=== PATIENT | female | born 1950 | race Caucasian/White ===

== ENCOUNTER 2022-01-22 14:15 | Outpatient (CLI) | payer MEDICARE, BC, SELFPAY ==
[2022-01-22 21:40] LABS: Albumin* 4.3 g/dL (3.3-5.0); Chloride* 106 mmol/L (96-114); Sodium* 138 mmol/L (135-149)
[2022-01-22 21:41] LABS: Potassium* 4.6 mmol/L (3.6-5.1)
[2022-01-22 21:42] LABS: Creatinine* 0.9 mg/dL (0.5-1.5)
[2022-01-22 21:43] LABS: Alanine Aminotransferase* 23 U/L (4-35); Alkaline Phosphatase* 111 U/L (40-150); Aspartate Amino Transferase* 27 U/L (12-35); Bilirubin Total* 0.4 mg/dL (0.1-1.5); Blood Urea Nitrogen* 14 mg/dL (7-30); Carbon Dioxide* 24 mmol/L (20-32); Glucose* 87 mg/dL (60-115); Total Protein* 7.2 g/dL (6.0-8.3)
[2022-01-22 21:44] LABS: Calcium* 9.4 mg/dL (8.4-10.6)
[2022-01-22 21:46] LABS: C Reactive Protein* 1.6 mg/dL (0.5-1.0)
[2022-01-22 21:59] LABS: Free T4 Free Thyroxine* 1.62 ng/dL (0.70-1.85)
== END 2022-01-22 14:16 | disposition home or self-care (01) ==
PROVIDERS: PCP Family Medicine; Visit Provider Family Medicine
DX: K52.9 Noninfective gastroenteritis and colitis, unspecified (principal); E78.5 Hyperlipidemia, unspecified
CPT/HCPCS: 80053; 84439; 84443; 86140

== ENCOUNTER 2022-02-19 07:54 | Outpatient (CLI) | payer MEDICARE, BC, SELFPAY | END 2022-02-19 07:55 | disposition home or self-care (01) | LOC: OP CLINIC 07:55 | PROVIDERS: PCP Family Medicine; Visit Provider Surgery | DX: R19.7 Diarrhea, unspecified (principal); K63.5 Polyp of colon | CPT/HCPCS: 45380; 88305; 99153; J2250; J3010 ==

== ENCOUNTER 2023-05-22 10:09 | Outpatient (CLI) | payer MEDICARE, BC, SELFPAY | END 2023-05-22 10:10 | disposition home or self-care (01) | PROVIDERS: PCP Family Medicine; Visit Provider Family Medicine | DX: E55.9 Vitamin D deficiency, unspecified (principal); E03.9 Hypothyroidism, unspecified; E78.5 Hyperlipidemia, unspecified | CPT/HCPCS: 80053; 80061; 82306; 82607; 84443 ==

== ENCOUNTER 2023-06-04 14:49 | Outpatient (CLI) | payer MEDICARE, BC, SELFPAY ==
--- NOTE | 2023-06-04 15:00 | CRLHL7_ITS ---
For Patients: As a result of the Cures Act, medical imaging exams and procedure reports are released immediately into your electronic medical record. You may view this report before your referring provider. If you have questions, please contact your health care provider. Indication: Cutaneous abscess of limb Technique: Grayscale and color Doppler ultrasound of the left axilla performed. Comparison: None Findings: There is a circumscribed mostly anechoic solid nodule located just beneath the skin measuring 1.3 x 0.7 x 1.0 cm. Mild distal acoustic enhancement noted. No internal vascularity. Impression: Solid nodule located just beneath the skin in the left axilla measuring 1.3 cm. No drainable fluid collection. Surgical consultation recommended. Dictated by Gaurav Johnson MD @ 06/06/2023 10:58:58 AM (Electronically Signed)
--- NOTE | 2023-06-04 16:00 | CRLHL7_ITS ---
For Patients: As a result of the Cures Act, medical imaging exams and procedure reports are released immediately into your electronic medical record. You may view this report before your referring provider. If you have questions, please contact your health care provider. Indication: Neoplasm of unspecified behavior of bone Technique: Grayscale and color Doppler ultrasound of the right medial clavicular soft tissues performed. Comparison: None Findings: No sonographic abnormality. No fluid collection or abscess. No adenopathy. No abnormal vascularity. Impression: Negative sonogram. Dictated by Gaurav Johnson MD @ 06/06/2023 11:00:20 AM (Electronically Signed)
== END 2023-06-04 14:50 | disposition home or self-care (01) ==
LOC: US 14:49
PROVIDERS: PCP Family Medicine; Visit Provider Family Medicine
DX: D49.2 Neoplasm of unspecified behavior of bone, soft tissue, and skin (principal); L02.419 Cutaneous abscess of limb, unspecified; L02.414 Cutaneous abscess of left upper limb
CPT/HCPCS: 76536; 76882

== ENCOUNTER 2023-07-10 14:32 | Outpatient (CLI) | payer MEDICARE, BC, SELFPAY ==
--- NOTE | 2023-07-10 15:00 | CRLHL7_ITS ---
For Patients: As a result of the Century Cures Act, medical imaging exams and procedure reports are released immediately into your electronic medical record. You may view this report before your referring provider. If you have questions, please contact your health care provider. INDICATION: LYMPHADENOPATHY, LOCALIZED SWELLING COMPARISON: Ultrasound 06/04/2023 TECHNIQUE: A CT volumetric acquisition was performed of the neck during intravenous infusion of 61 cc Isovue 370 nonionic intravenous contrast. Please note that all CT scans at this facility use dose modulation, iterative reconstruction, and/or weight-based dosing when appropriate to reduce radiation dose to as low as reasonably achievable. FINDINGS: The CT images demonstrate normal aeration of the mastoid air cells and middle ear cavities. The paranasal sinuses are clear. Mild curvature of the nasal septum. The parotid and submandibular glands are of normal size and have uniform enhancement. The oropharynx appears normal. The valleculae, epiglottis, aryepiglottic folds and piriform sinuses appear normal. There is a normal appearance of the larynx and subglottic trachea. The thyroid gland is of normal size and has uniform density. Atherosclerotic changes are present. Lung apices are clear. Prominent right parotid space lymph node on the right measuring 1.4 cm, level 8. Subcentimeter left level 8 lymph nodes also present. Anterior hypertrophic spurring at the medial right clavicle. Degenerative disc disease C4-5, C5-6 and C6-7. IMPRESSION: Mildly prominent right level 8 lymph node with possible developing central necrosis. ENT referral recommended. Anterior hypertrophic spur formation at the medial right clavicle accounting for the clinical lump. Please note that all CT scans at this facility use dose modulation, iterative reconstruction, and/or weight-based dosing when appropriate to reduce radiation dose to as low as reasonably achievable. Dictated by Gaurav Johnson MD @ 07/11/2023 11:41:49 AM (Electronically Signed)
[2023-07-10 15:34] LABS: Creatinine* 0.7 mg/dL (0.5-1.5); Estimated Glomerular Filt Rate 93 ml/min
== END 2023-07-10 14:33 | disposition home or self-care (01) ==
LOC: CT 14:33
PROVIDERS: PCP Family Medicine; Visit Provider Family Medicine
DX: R22.9 Localized swelling, mass and lump, unspecified (principal); R59.0 Localized enlarged lymph nodes
CPT/HCPCS: 36415; 70491; 82565; Q9967

== ENCOUNTER 2023-08-19 11:02 | Outpatient (CLI) | payer MEDICARE, BC, SELFPAY ==
--- NOTE | 2023-08-19 11:15 | CRLHL7_ITS ---
For Patients: As a result of the Century Cures Act, medical imaging exams and procedure reports are released immediately into your electronic medical record. You may view this report before your referring provider. If you have questions, please contact your health care provider. ULTRASOUND-GUIDED RIGHT PAROTID GLAND BIOPSY CLINICAL HISTORY: Indeterminate nodular mass associated with the right parotid gland. COMPARISON STUDIES: 07/10/2023 TECHNIQUE: Real-time ultrasound with image documentation was used for targeting the right parotid gland lesion. Core biopsy specimens were obtained using an automated gun with a 18-gauge biopsy needle. CONSENT and TIME OUT: The procedure, risks, and alternatives were explained to the patient and a consent was signed. [place] Protocol was followed including pre-procedure verification that relevant information/documentation was available, reviewed and properly matched to the patient; consent accurate and complete; and equipment and supplies available. Time Out was conducted just prior to starting procedure to verify the four required elements: patient identity, correct side/site marked (if applicable), procedure, relevant images/results properly labeled and displayed (if applicable). PROCEDURE: The patient was positioned supine on the ultrasound table. The right cheek was prepped with ChloraPrep. 5 cc of 1 percent lidocaine used for local anesthesia. Core samples were obtained. The specimens were placed in 10% formalin and sent to the pathology department. Pressure was held on the biopsy site until all bleeding subsided. The skin incision was closed with Steri-Strips. LATERALITY: Right parotid gland LESION: Hypoechoic solid and cystic nodule measuring 2.7 x 1.4 cm SUSPICION FOR MALIGNANCY: Medium NUMBER OF SAMPLES: 5 IMPRESSION: Ultrasound-guided core needle biopsy of right parotid gland lesion. Dictated by Gaurav Johnson MD @ 08/19/2023 1:00:29 PM (Electronically Signed)
== END 2023-08-19 11:03 | disposition home or self-care (01) ==
LOC: US 11:05
PROVIDERS: PCP Family Medicine; Visit Provider Otolaryngology
DX: R22.1 Localized swelling, mass and lump, neck (principal); K11.6 Mucocele of salivary gland
CPT/HCPCS: 20206; 76942; 88305; A4649

== ENCOUNTER 2023-09-09 07:42 | Outpatient (CLI) | payer MEDICARE, BC, SELFPAY | END 2023-09-09 07:43 | disposition home or self-care (01) | LOC: FRMREF 07:44 | PROVIDERS: PCP Family Medicine; Visit Provider Physician Assistant Medical | DX: M54.9 Dorsalgia, unspecified (principal); R63.4 Abnormal weight loss | CPT/HCPCS: 80053; 87086 ==

== ENCOUNTER 2023-09-11 10:34 | Outpatient (CLI) | payer MEDICARE, BC, SELFPAY | END 2023-09-11 10:35 | disposition home or self-care (01) | PROVIDERS: PCP Family Medicine; Visit Provider Family Medicine | DX: E03.9 Hypothyroidism, unspecified (principal); E55.9 Vitamin D deficiency, unspecified | CPT/HCPCS: 82306; 84439; 84443; 86140 ==

== ENCOUNTER 2023-09-17 10:29 | Outpatient (CLI) | payer MEDICARE, BC, SELFPAY ==
--- NOTE | 2023-09-17 11:00 | CT_ITS ---
Patient: NIKOLAY HUBBARD Facility:?[facility] Patient ID:?[id number] Site Patient ID:?[id number]. Site :?1950 Study:?CT-Chest/Abd/Pelvis 57CC ISOVUE 370 AND WATER PREP-09/17/2023 11:19:34 AM Ordering Physician:?DR. 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 PT HAS PAIN RIGHT BACK THAT RADIATES TO THE FRONT Technique: CT Chest/Abd/Pelvis 57CC ISOVUE 370 AND WATER PREP Please note that all CT scans at this facility use dose modulation, iterative reconstruction, and/or weight-based dosing when appropriate to reduce radiation dose to as low as reasonably achievable. Comparison: None Findings: In the chest, atherosclerotic changes are present. No adenopathy. No mass in the thoracic inlet. Degenerative disc disease. No suspicious osseous lesion or fracture. Roseann fissural nodule on the right measuring 4.3 millimeters, 3/48 nodular density within the left lower lobe measuring 8.6 millimeters, 3/51. Lingular nodule measuring 2 millimeters, 3/59. Left upper lobe nodule measuring 3 millimeters, 3/33. no infiltrate or edema. No effusion or pneumothorax. Mild paraseptal emphysema in the right lung apex. In the abdomen, focal fat deposition is present within the liver adjacent to the falciform ligament. No suspicious intrahepatic mass. The gallbladder is within normal limits. No calcified gallstones or biliary obstruction. Normal pancreas and spleen. Adrenal glands are unremarkable. Normal kidneys. Normal ureters. Atherosclerotic changes. No retroperitoneal or mesenteric adenopathy. In the pelvis, there are curvilinear areas of sclerosis within both femoral heads. No subchondral collapse. Joint space narrowing and spurring at both hip joints. Multilevel discogenic spurring. No fracture. The bladder is unremarkable. No pelvic mass. No bowel obstruction or free air. No free fluid. No enlarged lymph nodes. Mild narrowing of the sigmoid colon is present extending over a length of 15 millimeters, probably related to peristalsis. Impression: Small bilateral pulmonary nodules. The largest measures 8.6 millimeters in the lower lobe on the left. Follow-up in 1 year recommended. No adenopathy in the chest, abdomen or pelvis. Short segment segmental narrowing of the sigmoid colon, probable peristalsis. However, correlate with recent colonoscopy. Please note that all CT scans at this facility use dose modulation, iterative reconstruction, and/or weight-based dosing when appropriate to reduce radiation dose to as low as reasonably achievable. Dictated by Gaurav Johnson MD @ 09/17/2023 12:46:17 PM Signed by:?Gaurav Johnson MD @09/17/2023 12:46:17 PM (Electronic Signature)
== END 2023-09-17 10:30 | disposition home or self-care (01) ==
LOC: CT 10:30
PROVIDERS: PCP Family Medicine; Visit Provider Family Medicine
DX: M54.9 Dorsalgia, unspecified (principal); R91.8 Other nonspecific abnormal finding of lung field
CPT/HCPCS: 71260; 74177; Q9967

== ENCOUNTER 2023-09-25 08:34 | Outpatient (CLI) | payer MEDICARE, BC, SELFPAY ==
--- NOTE | 2023-09-25 09:00 | PE_ITS ---
[facility] [address] [address] Phone:?[phone] Fax:?[phone] Referring Physician Information: Natalie Mcdonald M.D. [address] [facility] [address] Phone:?[phone] Fax:?[phone] Patient:?Raheem Mike D.O.B:?1950 Sex:?Female Phone:?[phone] [facility] MRN:?[id number] Exam Date:?09/25/2023 EXAM:?PET/CT EYES TO THIGHS, CANCER RESTAGING CLINICAL INFORMATION: Lung nodules, weight loss, known parotid tumor (benign). TECHNICAL INFORMATION: Helical acquisition of data was obtained from the orbits to the upper thighs with reconstruction of 3.75 mm thick images at 3.[address] data was used for attenuation correction. PET scanning was performed through the same anatomic range 60 minutes following administration of 11.56 mCi of 18-FDG delivered intravenously. The patient's glucose at the time of the injection was 78 mg/dL. PET, CT and PET/CT fusion images are interpreted using a computer viewing workstation. PET, CT and PET/CT fusion images were archived and saved in the patient's permanent medical record. COMPARISON: CT chest, abdomen and pelvis 09/17/2023 INTERPRETATION: Head and Neck: FDG avid lesions in the bilateral parotid gland with 2 on the right and one on the left. A commercial sales representative lesion on the right measures 1.1 x 1.1 cm (series 202 image 37) with an SUV max of 14.96. Focal nodular prominence in the right epiglottic region measuring 1.0 cm (series 2 image 47) with mild FDG avidity with an SUV max of 6.81. There is physiologic uptake in the intracranial soft tissues. Chest: Mediastinal blood pool average SUV of 3.34. Nodular opacity in the left lower lobe measures approximately 1.0 cm (series 202 image 113) and demonstrates mild FDG avidity with an SUV max of 8.77. No other lung nodules are visualized on this exam. No lymphadenopathy detected. Abdomen and Pelvis: There are no abnormal hypermetabolic foci within the abdomen or pelvis. There is physiologic excretion of radiotracer in the urine and bowel. Skeleton, Musculature, and Integument: No abnormal hypermetabolic foci within the skeleton. No reta osteoblastic or osteolytic disease. CONCLUSION: * A mildly FDG avid 1 cm nodular opacity in the left lower lobe. This remains nonspecific and may be infectious or inflammatory in nature, with neoplasm not excluded. Recommend short interval follow-up CT chest in 3 months. * No FDG avid lymphadenopathy in the neck, chest, abdomen or pelvis. * FDG avid bilateral parotid lesions which are likely compatible with provided history of known Warthin's tumors. * Slight focal nodular asymmetry along the right aspect of the epiglottis with mild FDG avidity. Correlate with prior imaging if available. Otherwise, consider ENT consult/direct visualization or CT of the neck with contrast. Electronically signed on 09/29/2023 1:18:00 PM by Luis Chowdhury D.O
== END 2023-09-25 08:35 | disposition home or self-care (01) ==
LOC: RAD 08:35
PROVIDERS: PCP Family Medicine; Visit Provider Family Medicine
DX: R91.8 Other nonspecific abnormal finding of lung field (principal); R63.4 Abnormal weight loss; D11.9 Benign neoplasm of major salivary gland, unspecified; M54.6 Pain in thoracic spine
CPT/HCPCS: 78815; A9552

== ENCOUNTER 2023-11-27 10:48 | Outpatient (CLI) | payer MEDICARE, BC, SELFPAY | END 2023-11-27 10:49 | disposition home or self-care (01) | LOC: FRMREF 10:49 | PROVIDERS: PCP Family Medicine; Visit Provider Family Medicine | DX: E03.9 Hypothyroidism, unspecified (principal) | CPT/HCPCS: 84439; 84443 ==

== ENCOUNTER 2024-06-04 08:55 | Outpatient (CLI) | payer MEDICARE, BC, SELFPAY | END 2024-06-04 08:56 | disposition home or self-care (01) | LOC: NFLDREF 06-06 14:05 | PROVIDERS: PCP Family Medicine; Referring Provider Family Medicine; Visit Provider Family Medicine | DX: R63.4 Abnormal weight loss (principal); E78.5 Hyperlipidemia, unspecified; E55.9 Vitamin D deficiency, unspecified; Z11.59 Encounter for screening for other viral diseases | CPT/HCPCS: 80053; 80061; 82306; 86803 ==

== ENCOUNTER 2024-06-08 10:27 | Outpatient (CLI) | payer MEDICARE, BC, SELFPAY | END 2024-06-08 10:28 | disposition home or self-care (01) | PROVIDERS: PCP Family Medicine; Visit Provider Family Medicine | DX: E78.5 Hyperlipidemia, unspecified (principal); E03.9 Hypothyroidism, unspecified; E55.9 Vitamin D deficiency, unspecified; R63.4 Abnormal weight loss | CPT/HCPCS: 82607; 84443 ==

== ENCOUNTER 2024-06-15 12:48 | Outpatient (RCR) | payer MEDICARE, BC, SELFPAY ==
--- NOTE | 2024-06-15 15:06 | PT.OPE ---
[facility] PT [facility] Out[facility] Eval Start: 06/15/24 12:50 Freq: Status: Active Protocol: Document 06/15/24 15:05 CJT (Rec: 06/15/24 15:06 CJT [id number]) E-signed By Alex Barnhart PT Physical Therapy Outpatient Evaluation Insurance Information Recert Due Date 09/13/24 Insurance Name Medicare B Medical Diagnosis Unsteadiness Sacroilitis Lesion popliteal nerve Treating Diagnosis Unsteady gait Repeated falls Generalized weakness Referring Natalie Trevizo Subjective Preferred Name Edwardo Álvarez Pt presents for evaluation of unsteadiness on feet. Pt reports that she has had neuropathy in B feet constantly for the past 5-6 months although this originally began after pt had chemotherapy in 2016. Pt also developed drop foot on L following her chemotherapy treatment. Pt reports that in 2016 she had a disease that was attacking her nervous system. Various treatments were tried but nothing was working so chemotherapy was attempted and this seemed to help. PMH includes Graves disease. Pt also notes that she had some spots show up in her lunges. When she went in to have a biopsy the spots could not be located. Pt reports 2 falls in her home in the past year. Both of these occurred when she caught her toe on the carpet in her home. No reported injuries. Pt notes her legs and feet start to hurt when she walks. This changes day to day. Sometimes her feet hurt immediately and she cannot walk, other times she is only able to walk about 50 yards. The longer she stands and walks the worse her neuropathy hurts. Pt is a retired senior administrative support. Date of Last Physician Visit 06/08/24 Current Work Status Retired Precautions Treatment Precautions/Contraindications Weight loss (Acute) R63.4 - Abnormal weight loss ( ICD-10) Unsteadiness (Acute) R26.81 - Unsteadiness on feet (ICD-10) Neuropathy (Acute) G62.9 - Polyneuropathy, unspecified (ICD-10) Lung mass (Acute) R91.8 - Other nonspecific abnormal finding of lung field (ICD-10) Warthin tumor (Acute) D11.9 - Benign neoplasm of major salivary gland, unspecified (ICD-10) Insomnia (Acute) G47.00 - Insomnia, unspecified (ICD-10) Unintentional weight loss ( Acute) R63.4 - Abnormal weight loss ( ICD-10) Back Pain (Acute) M54.9 - Dorsalgia, unspecified (ICD-10) Vitamin D deficiency (Acute) E55.9 - Vitamin D deficiency, unspecified (ICD-10) Microscopic colitis, unspecified (Acute) K52.839 - Microscopic colitis, unspecified (ICD-10) Peroneal neuropathy (Acute) with foot drop G57.30 - Lesion of lateral popliteal nerve, unspecified lower limb (ICD-10) 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) Inflammation of sacroiliac joint (Acute) M46.1 - Sacroiliitis, not elsewhere classified (ICD-10) Hypothyroidism (Acute 08/02/09 ) E03.9 - Hypothyroidism, unspecified (ICD-10) Hyperlipidemia (Acute) E78.5 - Hyperlipidemia, unspecified (ICD-10) Depression (Acute) F32.A - Depression, unspecified (ICD-10) Therapy Limitations/Systems Review Not Limited Objective Other/Pertinent Objective R hip flexion: 3+/5 MMT R knee flexion: 5/5 MMT R knee extension: 5/5 MMT R ankle DF: 4/5 MMT L hip flexion: 3/5 MMT L knee flexion: 3/5 MMT L knee extension: 3/5 MMT L ankle DF: 2/5 MMT 4-Stage Balance Test: unable to complete positions II-IV TU.3 seconds 5 Times Wok-bi-Efypw: 11.0 seconds 30-Second Lua-jc-Vhoyr: 12 reps *pt requires use of hands during test Functional Test Performed & Score Activities-specific Balance Confidence (ABC): 48/160, 30% confidence Assessment Assessment/Impression Raheem is a very pleasant 73 year old female who presents to our clinic for evaluation and treatment of neuropathy. Pt is very unsteady on her feet due to weakness and neuropathic pain in her feet and lower legs that increases in intensity with increased time in WBing. Pts L LE is very weak throughout (see objective) and she favors this limb for transfers and ambulation. Her L knee also harvinder with every step due to weakness. Although pt has neuropathy in B feet, I am pleased to see that she does have protective sensation in B feet today. I was very clear with Edwardo today that I will not be able to help with her neuropathy but I can help her improve her strength and balance so that she may increase her activity level and physical health. The nature of the pts condition was explained and all questions were answered to the pts satisfaction. Skilled PT services are medically necessary to address deficits and return patient to highest level of function. Recommend physical therapy sessions 1-2/ week for 4-6 weeks. Pt states that she is very worried about travelling during the winter due to ice and fear of falling and would like to hold off on therapy until next summer. We will hold pts chart for30 days in case she decides to visit our clinic for continued care. If she does not return in 30 days, this note will serve as her discharge note. Printout of HEP was given for I completion and pt gives verbal understanding of each exercise. Primary Functional Limitations Walking, standing, transfers Plan of Care Rehabilitation Potential Not Applicable Physical Therapy Goals Goals not appropriate at this time. Pt not anticipating return to PT. Treatment Plan/Direct Interventions Gait Training,Joint Mobilization,Manual Therapy, Neuromuscular Re-ed, Therapeutic Activities, Therapeutic Exercises Frequency/Duration 1-2/week for 4-6 weeks Patient Will Be Discharged From Therapy Completion of LTG(s),Skills Plateau,Independent w/HEP, Independently Progressing Evaluation Billing Untimed Code Treatment Minutes 50 PT Eval No Charge No Complexity Moderate Certification Information Initial Certification Date 06/15/24 Ending Certification Date 09/13/24 Provider Signature Required Yes Provider Signature Shows Agreement With POC & Medical Necessity Physician NPI Number Write NPI# Here Physician Comment/Change : Physician Signature & Date Requested Please Sign/Date Here
== END 2024-08-18 14:59 | disposition home or self-care (01) ==
PROVIDERS: PCP Family Medicine; Visit Provider Family Medicine
DX: R26.81 Unsteadiness on feet (principal); M46.1 Sacroiliitis, not elsewhere classified; G57.30 Lesion of lateral popliteal nerve, unspecified lower limb; G62.9 Polyneuropathy, unspecified; M62.81 Muscle weakness (generalized); R29.6 Repeated falls; R26.9 Unspecified abnormalities of gait and mobility; Z51.89 Encounter for other specified aftercare
CPT/HCPCS: 97110; 97162

== ENCOUNTER 2024-09-01 13:48 | Outpatient (CLI) | payer MEDICARE, BC, SELFPAY ==
--- NOTE | 2024-09-01 14:00 | CRLHL7_ITS ---
For Patients: As a result of the Century Cures Act, medical imaging exams and procedure reports are released immediately into your electronic medical record. You may view this report before your referring provider. If you have questions, please contact your health care provider. XR DXA Bone Mineral Density (BMD) Reason for exam: Screening for osteoporosis. Current height (in): 62. Weight (lb): 94. Menopause age: 37. Ethnicity: White. 1. Have you had a previous hip or vertebral fracture? No. 2. Have you had any fractures during your adult life which did not result from significant trauma (e.g., auto accident)? No. 3. Did either of your parents have a hip fracture? No. 4. Do you smoke? Yes. 5. Have you ever taken Glucocorticoids? No. 6. Do you have rheumatoid arthritis? No. 7. Do you have secondary osteoporosis? No. 8. Do you drink 3 or more alcoholic drinks per day? No. 9. Are you being treated for osteoporosis? No. 10. Have you ever taken any of the following medications: Actonel, Evista, Fosamax, Miacalcin, Reclast, Boniva, Forteo, HRT (i.e., estrogen/hormone therapy), Protelos, Prolia, Vitamin D, Calcium, other ??? please specify. ANSWER: Yes, vitamin D. 11. Do you have any of the following medical conditions: Anorexia or bulimia, asthma or emphysema, end stage renal disease, hyperparathyroidism, any seizure disorders, cancer, inflammatory bowel diseases, hysterectomy, other ??? please specify. ANSWER: Yes, hyperparathyroidism and hysterectomy. 12. What was your maximum height (inches)? 63. 13. Do you perform weight bearing exercise regularly? No. 14. Do you regularly consume dairy products? No. 15. Do you drink caffeinated beverages? Yes. 16. At what age did your period start? 16. 17. Are you premenopausal? No. 18. How many full-term pregnancies have you had? 0. 19. Have you ever missed your period for more than 6 months in a row (not including or menopause)? No. TECHNIQUE: Bone mineral density study was performed using the [employer]. FINDINGS: The results of the study expressed as bone mineral density (BMD) are as follows: Lumbar spine L1 to L4: BMD: 0.763 g/cm2. T-score: -2.6. Z-score: -0.4 Neck Left: BMD: 0.614 g/cm2. T-score: -2.1. Z-score: -0.2 Right: BMD: 0.645 g/cm2. T-score: -1.8. Z-score: 0.1 Total Left: BMD: 0.609 g/cm2. T-score: -2.7. Z-score: -1.1 Right: BMD: 0.613 g/cm2. T-score: -2.7. Z-score: -1.1 IMPRESSION: Osteoporosis. *Comparison exams done prior to 12/2019 were performed on different unit, [employer]. Neymar Banuelos M.D. Body/Diagnostic Radiologist [email or web address] [email or web address]/Dictated by: Neymar Banuelos MD @ 09/03/2024 7:56:00 AM (Electronically Signed)
== END 2024-09-01 13:49 | disposition home or self-care (01) ==
LOC: RAD 13:50
PROVIDERS: PCP Family Medicine; Visit Provider Family Medicine
DX: Z12.31 Encounter for screening mammogram for malignant neoplasm of breast (principal); R92.333 Mammographic heterogeneous density, bilateral breasts; Z13.820 Encounter for screening for osteoporosis; M81.0 Age-related osteoporosis without current pathological fracture; Z78.0 Asymptomatic menopausal state
CPT/HCPCS: 77063; 77067; 77080